=== PATIENT | male | born 1970 | race Caucasian/White ===

== ENCOUNTER 2018-06-11 10:53 | Inpatient (IN) ==
[2018-06-11 13:00] LABS: Basophils % 0.8 % (0.0-0.8); Eosinophils # 0.2 10*3/uL (0.0-0.87); Hematocrit 41.6 VOL% (42.0-52.0); Hemoglobin 14.5 GM/DL (14.0-18.0); Immature Granulocytes % 0.4 %; Immature Granulocytes Absolute 0.02 #; Lymphocytes # 1.7 10*3/uL (1.4-4.0); Lymphocytes % 33.9 % (21.2-54.2); Mean Corpuscular HGB Conc 34.9 GM/DL (32-36); Mean Corpuscular Hemoglobin 30 PG (27-34); Mean Corpuscular Volume 86.7 FL (87-102); Mean Platelet Volume 11.1 FL (9.6-12.0); Monocytes # 0.2 10*3/uL (0.11-0.8); Neutrophils # 2.9 10*3/uL (1.4-7.4); Neutrophils % 57.9 % (38.7-73.9); Platelet Count 151 T/CUMM (130-400); Red Cell Distribution Width 12.1 % (9.3-17.3)
[2018-06-11] MEDS ORDERED: SODIUM CHLORIDE 0.9% 1,000 ML IV SCH (13:00)
[2018-06-11 13:31] LABS: Albumin 3.9 G/DL (3.4-5.0); Bilirubin,Total 0.4 MG/DL (0.2-1.0); Calcium 8.5 MG/DL (8.5-10.1); Osmolality,Calculated 277.4 MOS/KG (273-304); Total Protein 7.2 G/DL (6.4-8.3)
[2018-06-11] MEDS: CHLORHEXIDINE 4% SOLN 118 ML BOTTLE TOP SCH ×2 (15:12→21:00)
[2018-06-11] MEDS: PREGABALIN 75 MG CAPSULE PO SCH (21:00)
[2018-06-11] MEDS: busPIRone 10 MG TABLET PO SCH (21:00)
[2018-06-11] MEDS: CHLORHEXIDINE 0.12% ORAL RINSE 60 ML BOTTLE SWISH/SPIT SCH (22:00)
[2018-06-12] MEDS ORDERED: VANCOMYCIN 1,000 MG VIAL ONE (04:55)
[2018-06-12] MEDS ORDERED: TISSUE ADHESIVE 1 EACH APPLICATOR TOP ONE (04:55)
[2018-06-12] MEDS ORDERED: PAPAVERINE 60 MG/2 ML VIAL ONE (04:55)
[2018-06-12] MEDS ORDERED: CEFUROXIME INJ 1,500 MG in SYRINGE 1 EACH IV ONE (06:00)
[2018-06-12] MEDS ORDERED: CHLORHEXIDINE 4% SOLN 118 ML BOTTLE TOP ONE (06:30)
[2018-06-12] MEDS ORDERED: MIDAZOLAM 10 MG/2 ML VIAL ONE (06:59)
[2018-06-12] MEDS ORDERED: SUFentanil 250 MCG/5 ML AMP ONE (06:59)
[2018-06-12] MEDS ORDERED: POTASSIUM CHLORIDE RIDER 100 ML IV ONE (08:22)
[2018-06-12] MEDS ORDERED: CALCIUM CHLORIDE 1,000 MG/10 ML SYRINGE IV ONE (08:22)
[2018-06-12] MEDS ORDERED: PHENYLEPHRINE DRIP 40 MG/250 ML PREMIX IV ONE (08:22)
[2018-06-12] MEDS ORDERED: NITROGLYCERIN DRIP 0 MG/0 ML BOTTLE IV ONE (08:24)
[2018-06-12] MEDS ORDERED: EPINEPHrine 1 MG/10 ML SYRINGE ONE (08:24)
[2018-06-12 09:00] LABS: ABG Base Excess 0.1 MMOL/L (-2.5-2.5); ABG HCO3 24.5 MMOL/L (20-26); ABG Oxygen Saturation 98.7 % (95-100); ABG PCO2 39.8 MM HG (35-48); ABG PH 7.402 (7.35-7.45); ABG TCO2 21.4 MMOL/L (23-27); Glucose Heart Surgery 100 MG/DL (74-106); Hematocrit Heart Surgery 41.7 PERCENT (42-52); Hemoglobin Heart Surgery 13.6 G/DL (14.0-18.0); Ionized Calcium Arterial 1.15 MMOL/L (1.21-1.46); PCO2 Patient Temp Arterial 39.8 MMHG; PH Patient Temp Arterial 7.402; Patient Temperature 37 CELCIUS; Potassium Heart/CVR 3.8 MMOL/L (3.5-5.1); Sodium Heart/CVR 140 MMOL/L (135-145)
[2018-06-12] MEDS: busPIRone 10 MG TABLET PO SCH (09:20)
[2018-06-12] MEDS: CHLORHEXIDINE 0.12% ORAL RINSE 60 ML BOTTLE SWISH/SPIT SCH ×2 (09:20→21:42)
[2018-06-12] MEDS: PREGABALIN 75 MG CAPSULE PO SCH (09:20)
[2018-06-12 09:50] LABS: Apearance,Urine CLEAR (Clear); Bilirubin,Urine Negative (Negative); Blood, Urine Negative (Negative); Glucose,Urine (UA) Negative (Negative); Ketones,Urine Negative (Negative); Mucus,Urine Occasional /LPF (Occasional); Nitrite,Urine Negative (Negative); Protein,Urine Negative; RBC,Urine 2 /HPF (0-4); Squamous Epithelial Cell,Urine Occasional /HPF (0-10); Urine Color Yellow (Yellow); Urine Specific Gravity 1.014 (1.001-1.035); WBC,Urine 4 /HPF (0-6)
[2018-06-12 11:07] LABS: PCO2 Patient Temp Venous 32.1 MM HG; PH Patient Temp Venous 7.487; PO2 Patient Temp Venous 38.9 MM HG; Potassium Heart/CVR 4.8 MMOL/L (3.5-5.1); VBG Base Excess 1.4 MEQ/L (0-4); VBG HCO3 25.4 MEQ/L (24-28); VBG PCO2 35.4 MMHG (41-51); VBG PH 7.457; VBG PO2 44.7 MMHG (17-40)
[2018-06-12 11:24] LABS: Hematocrit Heart Surgery 33.4 PERCENT (42-52); Hemoglobin Heart Surgery 10.8 G/DL (14.0-18.0); PH Patient Temp Venous 7.473; PO2 Patient Temp Venous 36.4 MM HG; Potassium Heart/CVR 4.2 MMOL/L (3.5-5.1); VBG Base Excess 1.1 MEQ/L (0-4); VBG Oxygen Saturation 80.2 %; VBG PCO2 38.2 MMHG (41-51); VBG PH 7.429; VBG PO2 44.9 MMHG (17-40)
[2018-06-12 12:17] LABS: Hematocrit Heart Surgery 34.2 PERCENT (42-52); Hemoglobin Heart Surgery 11.1 G/DL (14.0-18.0); PCO2 Patient Temp Venous 38.5 MM HG; PH Patient Temp Venous 7.427; PO2 Patient Temp Venous 36.8 MM HG; Potassium Heart/CVR 4.7 MMOL/L (3.5-5.1); VBG Base Excess 1.1 MEQ/L (0-4); VBG HCO3 24.9 MEQ/L (24-28); VBG Oxygen Saturation 69.7 %; VBG PCO2 38.5 MMHG (41-51); VBG PO2 36.8 MMHG (17-40)
[2018-06-12 12:18] LABS: VBG PH 7.427
[2018-06-12 12:31] LABS: Hematocrit Heart Surgery 35.4 PERCENT (42-52); Hemoglobin Heart Surgery 11.5 G/DL (14.0-18.0); PCO2 Patient Temp Venous 43.7 MM HG; PH Patient Temp Venous 7.389; PO2 Patient Temp Venous 44.6 MM HG; Potassium Heart/CVR 4.2 MMOL/L (3.5-5.1); VBG Base Excess 1.1 MEQ/L (0-4); VBG Oxygen Saturation 77.3 %; VBG PCO2 43.7 MMHG (41-51); VBG PH 7.389; VBG PO2 44.6 MMHG (17-40)
[2018-06-12 13:18] LABS: ABG Base Excess 2.5 MMOL/L (-2.5-2.5); ABG HCO3 27.5 MMOL/L (20-26); ABG Oxygen Saturation 95.8 % (95-100); ABG PCO2 44.1 MM HG (35-48); ABG PH 7.412 (7.35-7.45); ABG PO2 89.6 MM HG (80-95); ABG TCO2 28.8 MMOL/L (23-27); Glucose Heart Surgery 164 MG/DL (74-106); Hemoglobin Heart Surgery 11.8 G/DL (14.0-18.0); Ionized Calcium Arterial 1.12 MMOL/L (1.21-1.46); Patient Temperature 37 CELCIUS; Potassium Heart/CVR 3.5 MMOL/L (3.5-5.1); Sodium Heart/CVR 137 MMOL/L (135-145)
[2018-06-12] MEDS ORDERED: ALBUMIN 5% 12.5 GM/250 ML VIAL IV ONE (13:31)
[2018-06-12] MEDS ORDERED: SODIUM BICARBONATE 50 MEQ/50 ML SYRINGE IV ONE (13:31)
[2018-06-12] MEDS ORDERED: MIDAZOLAM 2 MG/2 ML VIAL IV PRN (13:50)
[2018-06-12] MEDS ORDERED: POTASSIUM CHLORIDE RIDER 10 MEQ in PREMIX 1 EACH IV PRN (13:50)
[2018-06-12] MEDS ORDERED: ACETAMINOPHEN 650 MG SUPP RECTAL PRN (13:50)
[2018-06-12] MEDS ORDERED: SODIUM CHLORIDE 0.9% 250 ML IV PRN (13:50)
[2018-06-12] MEDS ORDERED: INSULIN REGULAR 100 UNIT/ML IV PRN (13:50)
[2018-06-12] MEDS ORDERED: MAGNESIUM SULF RIDER 2 GM in PREMIX 1 EACH IV PRN (13:50)
[2018-06-12] MEDS ORDERED: MAGNESIUM SULF RIDER 4 GM in PREMIX 1 EACH IV PRN (13:50)
[2018-06-12] MEDS ORDERED: DEXTROSE 50% 25 GM/50 ML VIAL IV PRN ×2 (13:50)
[2018-06-12] MEDS ORDERED: CHLORHEXIDINE 4% SOLN 118 ML BOTTLE TOP PRN (13:50)
[2018-06-12] MEDS ORDERED: ONDANSETRON 4 MG/2 ML VIAL IV PRN (13:50)
[2018-06-12] MEDS ORDERED: MORPHINE 10 MG/1 ML VIAL IV PRN (13:50)
[2018-06-12] MEDS ORDERED: CALCIUM CHLORIDE 1,000 MG/10 ML SYRINGE IV PRN (13:50)
[2018-06-12] MEDS ORDERED: INSULIN REGULAR DRIP 100 ML IV SCH (14:00)
[2018-06-12] MEDS ORDERED: SODIUM CHLORIDE 0.45% 1,000 ML IV SCH (14:00)
[2018-06-12] MEDS ORDERED: SUFentanil 50 MCG/ML AMP ONE (14:06)
[2018-06-12] MEDS ORDERED: ePHEDrine 50 MG/ML AMP ONE (14:06)
[2018-06-12] MEDS ORDERED: SEVOFLURANE 1 UNIT/15 MINUTE INH ONE (14:06)
[2018-06-12 14:13] LABS: ABG HCO3 25.2 MMOL/L (20-26); ABG Oxygen Saturation 96.2 % (95-100); ABG PCO2 38.2 MM HG (35-48); ABG PH 7.427 (7.35-7.45); ABG TCO2 22.7 MMOL/L (23-27); Glucose Heart Surgery 141 MG/DL (74-106); Hemoglobin Heart Surgery 10.7 G/DL (14.0-18.0); Potassium Heart/CVR 3.4 MMOL/L (3.5-5.1)
[2018-06-12] MEDS: SODIUM CHLORIDE 0.45% 1,000 ML IV SCH (14:14)
[2018-06-12] MEDS: ALBUMIN 5% 12.5 GM in PREMIX 1 EACH IV PRN ×3 (14:15→15:34)
[2018-06-12] MEDS: POTASSIUM CHLORIDE RIDER 20 MEQ in PREMIX 1 EACH IV PRN ×3 (14:16→18:24)
[2018-06-12 14:39] LABS: Calcium 7.9 MG/DL (8.5-10.1); Potassium 3.5 MMOL/L (3.5-5.1)
[2018-06-12 14:46] LABS: Basophils % 0.3 % (0.0-0.8); Eosinophils % 0.6 % (0.00-10.9); Hematocrit 26.9 VOL% (42.0-52.0); Hemoglobin 9.1 GM/DL (14.0-18.0); Immature Granulocytes % 0.5 %; Immature Granulocytes Absolute 0.03 #; Lymphocytes # 0.6 10*3/uL (1.4-4.0); Mean Corpuscular HGB Conc 33.8 GM/DL (32-36); Mean Corpuscular Hemoglobin 29 PG (27-34); Mean Corpuscular Volume 86.8 FL (87-102); Mean Platelet Volume 11.3 FL (9.6-12.0); Monocytes # 0.3 10*3/uL (0.11-0.8); Monocytes % 4.8 % (1.7-12.7); Neutrophils # 5.3 10*3/uL (1.4-7.4); Neutrophils % 83.8 % (38.7-73.9); Platelet Count 94 T/CUMM (130-400); Red Cell Distribution Width 12.2 % (9.3-17.3); White Blood Count 6.3 T/CUMM (4-12)
[2018-06-12 14:56] LABS: INR 1.1; PT Patient Result 11.2 SECS; Partial Thromboplastin Time 27.1 SECS (0-40)
[2018-06-12] MEDS: MORPHINE 4 MG/1 ML VIAL IV PRN ×3 (15:04→22:54)
[2018-06-12] MEDS: clonazePAM 0.5 MG TABLET PO SCH (15:06)
[2018-06-12 15:12] LABS: Platelet Estimate Adequate
[2018-06-12 16:10] LABS: Hemoglobin 9.2 GM/DL (14.0-18.0); Platelet Count 105 T/CUMM (130-400)
[2018-06-12] MEDS ORDERED: LACTATED RINGERS 1,000 ML IV ONE (16:15)
[2018-06-12] MEDS ORDERED: ASPIRIN 325 MG TABLET PO ONE (16:24)
[2018-06-12] MEDS ORDERED: PHENYLEPHRINE DRIP 40 MG/250 ML PREMIX IV PRN (16:56)
[2018-06-12 17:37] LABS: ABG Base Excess -0.9 MMOL/L (-2.5-2.5); ABG HCO3 23.7 MMOL/L (20-26); ABG Oxygen Saturation 96.3 % (95-100); ABG PCO2 39.6 MM HG (35-48); ABG PH 7.389 (7.35-7.45); ABG PO2 85.6 MM HG (80-95); ABG TCO2 21.9 MMOL/L (23-27); Glucose Heart Surgery 157 MG/DL (74-106); Hematocrit Heart Surgery 29.8 PERCENT (42-52); Hemoglobin Heart Surgery 9.6 G/DL (14.0-18.0); Potassium Heart/CVR 3.9 MMOL/L (3.5-5.1)
[2018-06-12] MEDS: CEFUROXIME INJ 1,500 MG in SYRINGE 1 EACH IV SCH (22:40)
[2018-06-13] MEDS: busPIRone 10 MG TABLET PO SCH ×3 (00:34→21:34)
[2018-06-13] MEDS: clonazePAM 0.5 MG TABLET PO SCH ×3 (00:34→08:46)
[2018-06-13 03:56] LABS: Hematocrit 26.2 VOL% (42.0-52.0); Hemoglobin 9.4 GM/DL (14.0-18.0); Immature Granulocytes % 0.4 %; Immature Granulocytes Absolute 0.05 #; Lymphocytes # 0.7 10*3/uL (1.4-4.0); Lymphocytes % 5.8 % (21.2-54.2); Mean Corpuscular HGB Conc 35.9 GM/DL (32-36); Mean Corpuscular Hemoglobin 31 PG (27-34); Mean Corpuscular Volume 85.3 FL (87-102); Mean Platelet Volume 11.6 FL (9.6-12.0); Monocytes # 0.7 10*3/uL (0.11-0.8); Monocytes % 5.8 % (1.7-12.7); Neutrophils # 9.8 10*3/uL (1.4-7.4); Platelet Count 129 T/CUMM (130-400); Red Blood Count 3.07 MC/CUMM (3.8-5.5); Red Cell Distribution Width 12.5 % (9.3-17.3); White Blood Count 11.2 T/CUMM (4-12)
[2018-06-13 04:37] LABS: Calcium 7.8 MG/DL (8.5-10.1); Osmolality,Calculated 281.3 MOS/KG (273-304); Potassium 4.2 MMOL/L (3.5-5.1)
[2018-06-13] MEDS: SODIUM CHLORIDE 0.45% 1,000 ML IV SCH (04:48)
[2018-06-13] MEDS: ALBUTEROL/IPRATROPIUM 3 ML NEB RESP TX SCH ×4 (07:07→19:53)
[2018-06-13 08:06] LABS: ABG Base Excess 0.8 MMOL/L (-2.5-2.5); ABG HCO3 24.3 MMOL/L (20-26); ABG Oxygen Saturation 91.4 % (95-100); ABG PCO2 34.6 MM HG (35-48); ABG PH 7.464 (7.35-7.45); ABG TCO2 25.3 MMOL/L (23-27); Allen Test Positive; Pt O2 Delivery Device Other
[2018-06-13] MEDS: SERTRALINE 100 MG TABLET PO SCH ×2 (08:21→08:47)
[2018-06-13] MEDS: ASPIRIN EC 325 MG TABLET PO SCH (08:21)
[2018-06-13] MEDS: CLOPIDOGREL 75 MG TABLET PO SCH (08:21)
[2018-06-13] MEDS: CYCLOBENZAPRINE 10 MG TABLET PO SCH ×2 (08:21→08:47)
[2018-06-13] MEDS: FUROSEMIDE 40 MG TABLET PO SCH (08:22)
[2018-06-13] MEDS: PANTOPRAZOLE 40 MG VIAL IV SCH (08:22)
[2018-06-13] MEDS: INSULIN REGULAR 100 UNIT/ML SUBCUT SCH ×4 (08:22→21:33)
[2018-06-13] MEDS: PREGABALIN 75 MG CAPSULE PO SCH ×2 (08:45→21:34)
[2018-06-13] MEDS: CEFUROXIME INJ 1,500 MG in SYRINGE 1 EACH IV SCH ×2 (09:15→21:35)
[2018-06-13] MEDS: CHLORHEXIDINE 0.12% ORAL RINSE 60 ML BOTTLE SWISH/SPIT SCH ×2 (09:22→21:35)
[2018-06-13] MEDS: MORPHINE 4 MG/1 ML VIAL IV PRN ×2 (09:55→19:28)
[2018-06-13] MEDS ORDERED: KETOROLAC 30 MG/1 ML VIAL IV ONE (12:12)
[2018-06-13] MEDS: CLORAZEPATE 7.5 MG TABLET PO SCH ×2 (14:47→21:35)
[2018-06-13] MEDS: ATORVASTATIN 40 MG TABLET PO SCH (21:34)
[2018-06-14] MEDS: ALBUTEROL/IPRATROPIUM 3 ML NEB RESP TX SCH ×5 (00:14→15:00)
[2018-06-14] MEDS: INSULIN REGULAR 100 UNIT/ML SUBCUT SCH ×6 (00:49→19:41)
[2018-06-14] MEDS: MORPHINE 4 MG/1 ML VIAL IV PRN ×2 (02:55→12:15)
[2018-06-14 03:07] LABS: Basophils % 0.1 % (0.0-0.8); Eosinophils % 0.1 % (0.00-10.9); Hematocrit 26.7 VOL% (42.0-52.0); Hemoglobin 8.9 GM/DL (14.0-18.0); Immature Granulocytes % 0.4 %; Immature Granulocytes Absolute 0.04 #; Lymphocytes # 1.8 10*3/uL (1.4-4.0); Lymphocytes % 19.8 % (21.2-54.2); Mean Corpuscular HGB Conc 33.3 GM/DL (32-36); Mean Corpuscular Hemoglobin 30 PG (27-34); Mean Corpuscular Volume 88.4 FL (87-102); Mean Platelet Volume 11.5 FL (9.6-12.0); Monocytes # 0.7 10*3/uL (0.11-0.8); Monocytes % 7.6 % (1.7-12.7); Neutrophils # 6.6 10*3/uL (1.4-7.4); Platelet Count 114 T/CUMM (130-400); Red Blood Count 3.02 MC/CUMM (3.8-5.5); Red Cell Distribution Width 12.7 % (9.3-17.3); White Blood Count 9.1 T/CUMM (4-12)
[2018-06-14 03:46] LABS: Calcium 8.1 MG/DL (8.5-10.1); Osmolality,Calculated 282.1 MOS/KG (273-304); Potassium 4.2 MMOL/L (3.5-5.1)
[2018-06-14] MEDS: PREGABALIN 75 MG CAPSULE PO SCH ×2 (09:23→21:00)
[2018-06-14] MEDS: FUROSEMIDE 40 MG TABLET PO SCH (09:23)
[2018-06-14] MEDS: CLORAZEPATE 7.5 MG TABLET PO SCH ×3 (09:23→21:00)
[2018-06-14] MEDS: ASPIRIN EC 325 MG TABLET PO SCH (09:23)
[2018-06-14] MEDS: CLOPIDOGREL 75 MG TABLET PO SCH (09:24)
[2018-06-14] MEDS: PANTOPRAZOLE 40 MG VIAL IV SCH (09:25)
[2018-06-14] MEDS: CHLORHEXIDINE 0.12% ORAL RINSE 60 ML BOTTLE SWISH/SPIT SCH ×2 (09:26→21:01)
[2018-06-14] MEDS ORDERED: FUROSEMIDE 40 MG/4 ML VIAL IV ONE (09:54)
[2018-06-14] MEDS ORDERED: ACETYLCYSTEINE 20% 800 MG/4 ML VIAL RESP TX ONE (09:55)
[2018-06-14] MEDS: MONTELUKAST 10 MG TABLET PO SCH (10:07)
[2018-06-14] MEDS: busPIRone 10 MG TABLET PO SCH ×2 (10:07→21:00)
[2018-06-14] MEDS: METOPROLOL TARTRATE 25 MG TABLET PO SCH ×2 (12:24→21:00)
[2018-06-14] MEDS ORDERED: ALBUTEROL/IPRATROPIUM 3 ML NEB RESP TX PRN (17:25)
[2018-06-14] MEDS: ATORVASTATIN 40 MG TABLET PO SCH (21:00)
[2018-06-14] MEDS: traMADol 50 MG TABLET PO PRN (22:30)
[2018-06-15] MEDS: INSULIN REGULAR 100 UNIT/ML SUBCUT SCH ×6 (00:22→20:29)
[2018-06-15 07:03] LABS: Basophils % 0.3 % (0.0-0.8); Eosinophils # 0.1 10*3/uL (0.0-0.87); Hematocrit 27.1 VOL% (42.0-52.0); Hemoglobin 9.4 GM/DL (14.0-18.0); Immature Granulocytes % 0.4 %; Immature Granulocytes Absolute 0.03 #; Lymphocytes # 1.6 10*3/uL (1.4-4.0); Lymphocytes % 23.2 % (21.2-54.2); Mean Corpuscular HGB Conc 34.7 GM/DL (32-36); Mean Corpuscular Hemoglobin 30 PG (27-34); Mean Platelet Volume 11.9 FL (9.6-12.0); Monocytes # 0.7 10*3/uL (0.11-0.8); Monocytes % 9.9 % (1.7-12.7); Neutrophils # 4.6 10*3/uL (1.4-7.4); Neutrophils % 65.2 % (38.7-73.9); Platelet Count 125 T/CUMM (130-400); Red Blood Count 3.15 MC/CUMM (3.8-5.5); Red Cell Distribution Width 12.7 % (9.3-17.3)
[2018-06-15 07:26] LABS: Calcium 8.5 MG/DL (8.5-10.1); Osmolality,Calculated 274.7 MOS/KG (273-304)
[2018-06-15] MEDS: FUROSEMIDE 40 MG TABLET PO SCH (08:59)
[2018-06-15] MEDS: PANTOPRAZOLE 40 MG VIAL IV SCH (08:59)
[2018-06-15] MEDS: MONTELUKAST 10 MG TABLET PO SCH (09:00)
[2018-06-15] MEDS: METOPROLOL TARTRATE 25 MG TABLET PO SCH ×2 (09:00→21:14)
[2018-06-15] MEDS: ASPIRIN EC 325 MG TABLET PO SCH (09:00)
[2018-06-15] MEDS: CLOPIDOGREL 75 MG TABLET PO SCH (09:00)
[2018-06-15] MEDS: PREGABALIN 75 MG CAPSULE PO SCH ×2 (09:00→21:15)
[2018-06-15] MEDS: CLORAZEPATE 7.5 MG TABLET PO SCH ×3 (09:00→21:15)
[2018-06-15] MEDS: CHLORHEXIDINE 0.12% ORAL RINSE 60 ML BOTTLE SWISH/SPIT SCH ×2 (09:01→22:27)
[2018-06-15] MEDS: busPIRone 10 MG TABLET PO SCH ×2 (09:10→21:15)
[2018-06-15] MEDS: BISACODYL 5 MG TABLET PO SCH (16:37)
[2018-06-15] MEDS: DOCUSATE SODIUM 100 MG CAPSULE PO SCH ×2 (16:37→21:15)
[2018-06-15] MEDS: traMADol 50 MG TABLET PO PRN (19:49)
[2018-06-15] MEDS: ATORVASTATIN 40 MG TABLET PO SCH (21:15)
[2018-06-16] MEDS ORDERED: INSULIN REGULAR 100 UNIT/ML SUBCUT SCH (07:30)
[2018-06-16 08:22] VITALS: BP 133/71
[2018-06-16] MEDS: busPIRone 10 MG TABLET PO SCH (08:25)
[2018-06-16] MEDS: FUROSEMIDE 40 MG TABLET PO SCH (08:25)
[2018-06-16] MEDS: BISACODYL 5 MG TABLET PO SCH (08:25)
[2018-06-16] MEDS: ASPIRIN EC 325 MG TABLET PO SCH (08:25)
[2018-06-16] MEDS: DOCUSATE SODIUM 100 MG CAPSULE PO SCH (08:25)
[2018-06-16] MEDS: METOPROLOL TARTRATE 25 MG TABLET PO SCH (08:25)
[2018-06-16] MEDS: PREGABALIN 75 MG CAPSULE PO SCH (08:25)
[2018-06-16] MEDS: CHLORHEXIDINE 0.12% ORAL RINSE 60 ML BOTTLE SWISH/SPIT SCH (08:27)
[2018-06-16] MEDS: MONTELUKAST 10 MG TABLET PO SCH (08:36)
[2018-06-16] MEDS: PANTOPRAZOLE 40 MG VIAL IV SCH (08:36)
[2018-06-16] MEDS: CLOPIDOGREL 75 MG TABLET PO SCH (08:36)
[2018-06-16] MEDS: CLORAZEPATE 7.5 MG TABLET PO SCH (08:37)
== END 2018-06-16 11:35 | disposition home health service (06) | DRG 236 ==
LOC: N.ICU 12:35 → N.CVR 06-12 08:32 → N.ICU 06-13 06:59 → N.TELES 06-13 13:44
PROVIDERS: ADMIT Thoracic Surgery (Cardiothoracic Vascular Surgery); ATTEND Thoracic Surgery (Cardiothoracic Vascular Surgery)